=== PATIENT | female | born 1970 | race Caucasian/White ===

== ENCOUNTER 2023-06-18 15:42 | Emergency (ER) | payer OTHER, SELFPAY ==
[2023-06-18 15:45] VITALS: BP 120/81
[2023-06-18 16:12] LABS: % Basophils 0.6 % (0-2); % Eosinophils 3.1 % (0-6); % Immature Granulocytes 0.1 % (0-0.5); % Lymphocytes 41.9 % (20.5-51.1); % Monocytes 4.4 % (1.7-9.3); % Neutrophils 49.9 % (42.2-75.2); Absolute Eosinophils 0.2 10^3/uL (0-0.7); Absolute Lymphocytes 2.8 10^3/uL (1.2-3.4); Absolute Monocytes 0.3 10^3/uL (0.1-0.6); Absolute Neutrophils 3.4 10^3/uL (1.4-6.5); Hematocrit 39.7 % (37.0-47.0); Hemoglobin 13.1 g/dL (12.0-16.0); Mean Corpuscular Hgb 28.5 pg (27.0-31.0); Mean Corpuscular Volume 86.5 fL (81.0-99.0); Mean Platelet Volume 8.9 fL (7.4-10.4); Nucleated Red Blood Cells % 0 %; Platelet Count 373 10^3/uL (130-400); Red Blood Cell Count 4.59 10^6/uL (4.20-5.40); Red Cell Dist. Width 13.3 % (11.5-14.5); White Blood Cell Count 6.8 10^3/uL (4.8-10.8)
[2023-06-18 16:22] LABS: INR 1.01; PT 13.1 Sec (11.4-14.6)
[2023-06-18 16:23] LABS: APTT 31.5 Sec (23.4-35.0)
[2023-06-18 16:28] LABS: ALT (SGPT) 15 U/L (0-35); AST (SGOT) 25 U/L (14-36); Albumin 4.2 g/dl (3.5-5.0); Alkaline Phosphatase 98 U/L (38-126); Blood Urea Nitrogen 16 mg/dl (7-17); Calcium 9.5 mg/dl (8.4-10.2); Carbon Dioxide 27 mmol/L (22-30); Chloride 104 mmol/L (98-107); Glucose 142 mg/dl (70-99); Potassium 4.1 mmol/L (3.5-5.1); Sodium 135 mmol/L (135-145); Total Bilirubin 0.4 mg/dl (0.2-1.3); Total Protein 7.2 g/dl (6.3-8.2); eGFR > 60.00
[2023-06-18 16:34] LABS: Troponin I < 0.012 ng/ml
[2023-06-18 19:51] VITALS: BP 122/64
--- NOTE | 2023-06-18 20:22 | ED.GENMED ---
History of Present Illness
General
Chief Complaint: Chest Pain
Source: patient
Exam Limitations: none
Time Seen by Provider: 06/18/23 20:02
Nursing documentation reviewed up to this point in time: agreed with
Travel History
Have you had any contact with someone who has COVID-19?: No
Do you have any symptoms of coronavirus? Fever > 100 degrees, chills, cough, shortness of breath, sore throat, loss of taste or smell, muscle aches, or headache?: No
History of Present Illness
History of Present Illness:
Patient is a 52-year-old female who presents to the ER for evaluation. Patient has had chest pain off and on for the past several months, at times she feels it in her shoulder blades.. She reports it is more of a dull sensation that she notices
off-and-on. it is not associated with exertion. She denies any shortness of breath. She has not taken anything for the pain. She reports she has been under a lot of stress recently as she recently was caring for her ex- who is on hospice
and just several days ago. She has never had this eval by family doctor. She called today and they recommended she come to the ER. She has no cardiac history. She does not smoke. No prior history of DVT PE. She is not on oral hormonal
supplements.
She denies any injury denies any rash fever chills.
Past History
Past History
ED Past Medical History: None
ED Past Surgical History: None
Patient has exhibited threatening behavior?: No
Social History
Personal:
Living: with family
Employment: Employed
Review of Systems
Review of Systems
Allergies reviewed?: Yes
All Other Systems: ROS reviewed and negative except as documented in HPI and ROS
Constitutional: Reports no symptoms; Denies fever, fatigue or chills
EENT: Reports no symptoms
Respiratory: Reports no symptoms; Denies trouble breathing
Cardiac: Reports chest pain; Denies diaphoresis, palpitations or syncope
ABD/GI: Reports no symptoms
: Reports no symptoms
Musculoskeletal: Reports no symptoms
Skin: Reports no symptoms
Neurological: Reports no symptoms
Hematologic/Lymphatic: Reports no symptoms
Psychiatric: Reports no symptoms
Phy Exam
General Physical Exam
General Presentation: no apparent distress
General age: appears stated age
General Skin: warm and dry
General Habitus: normal
General Mental: alert
General Hydration: appears well hydrated
Cardiovascular Exam
Cardiovascular Exam: regular rate/rhythm, no murmur and normal peripheral pulses
Pulmonary Exam
Pulmonary Exam: lungs clear, no respiratory distress and chest non tender
Neurological Exam
Neurological Exam: alert and oriented x3
Marquez Coma Scale
Eye Opening: Spontaneous
Verbal Response: Oriented
Motor Response: Obeys Commands
GCS Total Score: 15
Musculoskeletal Exam
Musculoskeletal Exam: full ROM
Skin Exam
Skin Exam: normal color and warm/dry
Psychiatric Exam
Psychiatric Exam: normal mood/affect
Scores
Heart Score for Chest Pain Patients
STEMI patient?: Not applicable
Course
Orders/Labs/Results
Orders:
Orders
06/18/23 15:47
Electrocardiogram (*1) Urgent
Reason for Study: Chest Pain
EKG- Treatment ONCE
06/18/23 15:53
Complete Blood Count/With Diff Urgent
Comprehensive Metabolic Panel Urgent
Protime/PTT Urgent
Troponin I Urgent
Abnormal Lab Results
06/18/23
15:53
Glucose 142 H mg/dl
(70-99)
06/18/23 15:53
06/18/23 15:53
Vital Signs
Initial and Last Documented VS:
Initial Vital Signs
Temp Pulse Resp BP Pulse Ox
98.2 F 80 18 120/81 97
06/18/23 15:45 06/18/23 15:45 06/18/23 15:45 06/18/23 15:45 06/18/23 15:45
Last Documented Vital Signs
Temp Pulse Resp BP Pulse Ox
98.2 F 64 16 122/64 99
06/18/23 15:45 06/18/23 19:51 06/18/23 19:51 06/18/23 19:51 06/18/23 19:51
MDM/Problems Addressed
Differential Diagnosis Includes:
Not limited to musculoskeletal pain, anxiety less likely unstable angina/CAD
MDM/Problems Addressed:
Patient is a 52-year-old female with no past medical history presented for intermittent chest pain for the past several months not associate with shortness of breath. She is in no acute distress no history of elevated cholesterol no risk factors
for PE DVT. Normal card troponin normal EKG will check chest x-ray and DC with cardiology follow-up will place the chest pain hotline though less likely cardiac disease. Patient has been under a lot of stress recently caring for her ex- who
on hospice several days ago. Discussed with patient also importance of close outpatient follow primary doctor
*Radiology
Radiology exam reviewed: radiology read reviewed
*Pulse Oximetry
Patient hypoxic: no
*EKG
Interpreted by ED Provider?: Yes
Interpretation: normal
Comparison EKG: no comparison EKG present
Heart Rate: 68
Rate: normal
Rhythm: sinus
Ischemia: no ischemia
*Critical Care Note
Total Time (30-74mins, 75-104mins- exclusive of procedures): Not Applicable
ED Attending Note
-
Portions of this chart may have been created with voice recognition software.� Occasional wrong word or��sound alike� substitutions may have occurred due to the inherent limitations of voice recognition software.
Discharge Plan
Departure
Patient Disposition: Home (Routine Discharge)
Date of Disposition: 06/18/23
Time of Disposition: 20:41
Patient with high blood pressure during this ER visit?: No
Covid-19: Not Applicable
Discharge Problem:
Chest pain
Instructions: Chest Pain CBC Follow Up
Prescriptions:
No Action
hydrocodone-acetaminophen 1 TABLET tablet
1 tab PO Q4HPRN PRN (Reason: severe pain) Qty: 10 0RF
Referrals:
Jaspreet March MD [Family Provider] -
Kelley Christianson MD [Active] -
Activity Restrictions/Additional Instructions:
Follow-up with cardiology as discussed . You were placed on the cardiology hotline .you should receive a phone call in the next of days however if you do not please give the office call to schedule appoint. Also as discussed please follow-up with
family doctor for continued evaluation of your symptoms. I did add a thyroid level onto your labs today please have your family doctor follow-up with this. You may try ibuprofen or Tylenol for discomfort return if any worsening of symptoms
Interventions
Interventions:
*Risk Screen - Suicide Last Done: 06/18/23 15:45
*General Assessment Last Done: 06/18/23 15:45
*Neglect/Abuse Screening Last Done: 06/18/23 15:45
ED- Fall Risk Assessment Last Done: 06/18/23 19:54
*ED COVID-19 Vaccine History Last Done: 06/18/23 15:45
ED- Cardiac Assessment Last Done: 06/18/23 19:54
[2023-06-18] MEDS: MOTRIN 600 MG PO (20:38)
[2023-06-18 20:54] VITALS: BP 121/70
[2023-06-18 21:45] LABS: TSH Reflex To Free T4 1.05 uIU/ml (0.47-4.68)
== END 2023-06-18 20:56 | disposition home or self-care (01) ==
LOC: EMR 15:42
PROVIDERS: Emergency Medicine; EMERGENCY PHYSICIAN Emergency Medicine; FAMILY PHYSICIAN Family Medicine
DX: R07.89 Other chest pain (principal)
CPT/HCPCS: 99285; 71046; 80053; 84443; 84484; 85025; 85610; 85730; 93005

== ENCOUNTER 2024-10-29 16:29 | Emergency (ER) | payer OTHER, SELFPAY ==
[2024-10-29 16:31] VITALS: BP 137/88
--- NOTE | 2024-10-29 17:36 | ED.GENMED ---
History of Present Illness
General
Chief Complaint: Eye Problems
Time Seen by Provider: 10/29/24 16:39
History of Present Illness
History of Present Illness:
54-year-old female presents the emergency department for evaluation of right eye discomfort. She states that she felt a sudden onset of a foreign body sensation in the right eye and attempted to get her contacts out. Uncertain of the contact
remains in the eye. Unable to open the eye due to severe pain
Past History
Past History
ED Past Medical History: None
ED Past Surgical History: None
Patient has exhibited threatening behavior?: No
Social History
Personal:
Living: with family
Employment: Employed
Review of Systems
Review of Systems
Allergies reviewed?: Yes
All Other Systems: ROS reviewed and negative except as documented in HPI and ROS
Phy Exam
Physical Exam
Physical Exam:
GEN: Well appearing, NAD, WDWN
HEENT: Oral mucosa moist, no scleral icterus
Eyes: No evidence of retained contact in the eye, under fluorescein stain there is a ovoid area of focal dye uptake to the inferior cornea, under slit-lamp examination no visible dendritic lesions, no visible foreign bodies
Cardiac: Regular rate
Lung: No respiratory distress, no tachypnea
MSK: No gross deformity or injuries
Skin: Good color, no pallor or jaundice, no rashes
Neuro: AO x3, moves all extremities freely
Psych: Calm, cooperative
Course
Orders/Labs/Results
Orders:
Orders
10/29/24 17:40
Fluorescein Sodium [Ful-Alexandrea] 1 mg .ROUTE .STK-MED ONE
Tetracaine HCl [Tetracaine 0.5% Ophthalmic Solution] 1 drop .ROUTE .STK-MED ONE
Vital Signs
Initial and Last Documented VS:
Initial Vital Signs
Temp Pulse Resp BP Pulse Ox
97.9 F 70 18 137/88 100
10/29/24 16:31 10/29/24 16:31 10/29/24 16:31 10/29/24 16:31 10/29/24 16:31
Last Documented Vital Signs
Temp Pulse Resp BP Pulse Ox
97.9 F 70 18 137/88 100
10/29/24 16:31 10/29/24 16:31 10/29/24 16:31 10/29/24 16:31 10/29/24 17:37
MDM/Problems Addressed
MDM/Problems Addressed:
Suspect a corneal ulcer given her contact lens use and lack of known acute trauma. Will prescribe topical antibiotics and refer to her funeral pre arrangement specialist as an outpatient
*Pulse Oximetry
SaO2: 100
Oxygen Mode of Delivery: Room air
Patient hypoxic: no
*Critical Care Note
Total Time (30-74mins, 75-104mins- exclusive of procedures): Not Applicable
ED Attending Note
-
Portions of this chart may have been created with voice recognition software.� Occasional wrong word or��sound alike� substitutions may have occurred due to the inherent limitations of voice recognition software.
Discharge Plan
Departure
Patient Disposition: Home (Routine Discharge)
Date of Disposition: 10/29/24
Time of Disposition: 17:37
Patient with high blood pressure during this ER visit?: No
Discharge Problem:
Corneal ulcer
Instructions: Corneal Ulcer (DC)
Prescriptions:
New
ofloxacin 0.3 % drops
2 drp ophthalmic (eye) QID 7 Days Qty: 10 0RF
No Action
hydrocodone-acetaminophen 1 TABLET tablet
1 tab PO Q4HPRN PRN (Reason: severe pain) Qty: 10 0RF
Referrals:
PRIVATE,PHYSICIAN [Family Provider, Internal Medicine]
Activity Restrictions/Additional Instructions:
No contacts for 7-10 days
Follow up with Dr Christy
Interventions
Interventions:
*Risk Screen - Suicide Last Done: 10/29/24 16:31
*General Assessment Last Done: 10/29/24 16:31
*Neglect/Abuse Screening Last Done: 10/29/24 17:42
*ED- Fall Risk Assessment Last Done: 10/29/24 17:42
*ED COVID-19 Vaccine History Last Done: 10/29/24 17:42
*Nursing Disposition Last Done: 10/29/24 17:42
Discharge Date and Time
Discharge Date/Time: 10/29/24 17:43
Print Language: SINHALA
== END 2024-10-29 17:43 | disposition home or self-care (01) ==
LOC: EMR 16:29
PROVIDERS: EMERGENCY PHYSICIAN Student in an Organized Health Care Education/Training Program
DX: H16.001 Unspecified corneal ulcer, right eye (principal)
CPT/HCPCS: 99283